=== PATIENT | male | born 1990 | race Caucasian/White ===

== ENCOUNTER 2024-01-15 11:28 | Emergency (ER) | payer OTHER, SELFPAY ==
[2024-01-15 11:28] VITALS: BP 164/106; PULSE 100; RESP 18; TEMP 36.2; O2SAT 100; BMI 28.8
[2024-01-15 12:14] VITALS: BP 166/102; PULSE 85; RESP 14; O2SAT 98
[2024-01-15 16:00] VITALS: BP 155/93; PULSE 63; RESP 16; O2SAT 97
[2024-01-15] MEDS: Mixture 30 ML Bottle 10 ML TOPICAL (18:16)
--- NOTE | 2024-01-15 18:33 | EX.ED.DYSGE1 ---
HPI History of Present Illness Chief Complaint: Nosebleed Detail of Chief Complaint: Spontaneous nosebleed left side Informant: patient Onset/Context/Timing Onset: Today and Hours Context: Sudden Onset Timing: Continuous Quality: Epistaxis Location: Left Current Severity: Mild Maximum Severity: Moderate Worsened by: Nothing Relieved by: By nothing Associated Symptoms Associated Symptoms: Nothing Narrative Narrative: patient is a 33-year-old male on no medications with no allergies who presents with spontaneous nosebleed left side. This occurred at work. He has been bleeding for several hours. He is on no antithrombotic or anticoagulant. He denies bruising easily. Denies bleeding of his gums with brushing his teeth. Denies hematuria. [place] black or maroon-colored stool. Prior similar symptoms: No Recent Illness/Hospitalization: No PFSH PFSH Home Medications cephalexin 500 mg capsule 500 mg PO Q8H #14 CAPSULES 01/15/24 [Rx Last Taken Unknown] Allergy/AdvReac Type Severity Reaction Status Date / Time No Known Allergies Allergy Verified 01/15/24 11:29 Surgical History no surgical history no surgical history Social History Smoking Status: Current every day smoker tobacco type: cigarettes ROS ROS ED Constitutional Constitutional ED: Denies chills, fever(s), subjective, sweats or weight loss Eyes Eyes: Denies blurry vision or change in vision ENT ENT ED: Reports rhinorrhea; Denies ear pain or sore throat Cardiovascular Cardiovascular: Denies chest pain or palpitations Respiratory/Chest Respiratory/Chest: Denies cough, dyspnea or dyspnea on exertion Gastrointestinal Gastrointestinal: Denies melena, nausea or vomiting Genitourinary Genitourinary ED: Denies hematuria Musculoskeletal Musculoskeletal: Denies arthralgias or myalgias Hematologic/Lymphatic Hematologic/Lymphatic: Reports systems reviewed and no addt'l complaints, except as documented; Denies anemia, easy bleeding or easy bruising EXAM Physical Exam Const Vital Signs: 01/15/24 11:28 01/15/24 12:14 01/15/24 16:00 Temperature 97.2 F L Temperature Source Temporal Pulse Rate 100 85 63 Respiratory Rate 18 14 16 Blood Pressure 164/106 H 166/102 H 155/93 H Blood Pressure Mean 125 123 113 Pulse Ox 100 98 97 Oxygen Delivery Method Room Air Room Air Room Air Positive well nourished and well developed General Appearance ED: well developed and NAD; Negative for pallor HEENT HEENT Narrative: Blood noted left vestibule. No bleeding noted over the septum. Right nares appears normal. Negative for trauma or tenderness Eyes PERRL General Eye ED: Negative for pale conjunctiva or scleral icterus Neck no lymphadenopathy, supple and no JVD Resp normal respiratory effort and clear to auscultation bilaterally Cardio regular rate, regular rhythm, S1 normal heart sound, S2 normal heart sound and no murmurs Extremity normal to inspection General Extremety ED: Negative for edema or tenderness General Extremity: Negative for edema Neuro oriented x3 and CN's II-XII intact bilaterally Sensorium / Orientation: alert Psych mental status grossly normal Skin no rashes or lesions noted, no wounds and skin turgor normal General Skin Exam: elasticity normal; Negative for jaundice or pallor MDM MDM MDM Narrative Medical decision making narrative: Patient with epistaxis left. In spite of pressure he continued to have bleeding. There is significant clots noted. Blood is noted above the inferior turbinate. Patient was packed with cotton saturated with [place] solution. Patient had significant clots even after placement of cotton saturated with [place] solution. Patient blew his nose to remove the clots. There is no abnormality noted over the septum or Laura box plexus. There is small amount of blood noted above the turbinates. Since he has had significant bleeding for hours anterior posterior Rhino Rocket was placed. Balloon was inflated to 5 cc. Patient was placed on cephalexin. He was referred to ENT. Discharge Plan Triage Chief Complaint: Nosebleed ED Provider: Sai Obando Dx/Rx/DC Orders Clinical Impression: Epistaxis, Elevated blood-pressure reading without diagnosis of hypertension Instructions: ED Epistaxis (Adult), ED Hypertension, To Be Confirmed Prescriptions: New cephalexin [cephalexin] 500 mg capsule 500 mg PO Q8H Qty: 14 0RF Primary Care Provider: Care Physician,No Primary Referrals: Mike Meza MD [Med Staff - Active Staff] - 3-5 Days Franki Jacob DO [Med Staff - Material Coordinator] - 1-2 Weeks Care Physician,No Primary [Primary Care Provider] - Activity Restrictions/Additional Instructions: Call Dr. Dozier's office on Wednesday to be seen in 3 to 5 days. Since you do not have a primary care physician your blood pressures been elevated on multiple readings refer to Dr. Jacob for repeat blood pressure check in 1 to 2 weeks Disposition Disposition: Home, Self Care
[2024-01-15 19:00] VITALS: BP 160/95; PULSE 71; RESP 18; TEMP 36.8; O2SAT 99
[2024-01-15] MEDS: Cephalexin 250 MG Capsule 500 MG PO (19:03)
== END 2024-01-15 19:05 | disposition home or self-care (01) ==
PROVIDERS: Emergency Provider Emergency Medicine; Visit Provider Emergency Medicine
DX: R04.0 Epistaxis (principal); R03.0 Elevated blood-pressure reading, without diagnosis of hypertension; F17.210 Nicotine dependence, cigarettes, uncomplicated
CPT/HCPCS: 30901; 30905; 99282

== ENCOUNTER → 2024-02-04 | Outpatient (CLI) | payer OTHER, SELFPAY ==
[2024-02-04 16:11] LABS: AST(SGOT) 19 U/L (15-37); Alanine Aminotransfer ALT/SGPT 39 U/L (16-61); Albumin, Serum 3.9 g/dL (3.2-5.0); Alkaline Phosphatase 59 U/L (45-117); Anion Gap 4 (5-15); BUN 15 mg/dL (7-18); BUN/Creat Ratio 14.7 RATIO (10-20); Calcium,Total 9.4 mg/dL (8.5-10.1); Chloride 104 mmol/L (98-107); Cholesterol 138 mg/dL (200); Creatinine, Serum 1.02 mg/dL (0.70-1.30); EST Glomerular Filtration Rate 89 mL/min (>60); Est Glom Filt Rate - Afr Amer 107 mL/min (>60); Globulin 3.8 g/dL (2.2-4.2); Glucose 121 mg/dL (74-106); High Density Lipoprotein 42 mg/dL; Potassium 3.4 mmol/L (3.5-5.1); Protein, Total 7.7 g/dL (6.4-8.2); Sodium Level 138 mmol/L (136-145); Triglycerides 111 mg/dL; Very Low Density Lipoprotein 22 mg/dL (5-40)
== END | disposition home or self-care (01) ==
LOC: BFHLAB 13:18
PROVIDERS: PCP Family Medicine; Visit Provider Family Medicine
DX: Z00.00 Encounter for general adult medical examination without abnormal findings (principal)
CPT/HCPCS: 36415; 80053; 80061